=== PATIENT | male | born 1930 | race Caucasian/White ===

== ENCOUNTER 2018-10-05 14:22 | Inpatient (IN) ==
--- NOTE | 2018-10-05 15:42 | Diag Imaging Result Doc PS360 ---
EXAM: CHEST-PORTABLE 10/05/2018 HISTORY: stroke like symptoms TECHNIQUE: AP upright at 1535 COMMENT: There is no evidence of acute cardiac or pulmonary disease. There is what appears to be a small granuloma in the left costophrenic angle. There are sternotomy wires. Compared to 06/28/2018 there has been no significant change. IMPRESSION: No acute disease. Electronically signed by Wayne Reynoso 10/05/2018 3:40 PM
--- NOTE | 2018-10-05 15:47 | Diag Imaging Result Doc PS360 ---
EXAM: CT HEAD W/O CONTRAST - 10/05/2018 HISTORY: stroke like symptoms TECHNIQUE: CT head without contrast COMPARISON: 03/05/2015 FINDINGS: There are atrophic changes similar to the prior exam. There is an apparent arachnoid cyst at the left posterior fossa similar to the prior exam. There is a 0.7 cm infarct in the [place] to the right of midline which has developed since the prior exam, but has well demarcated appearance suggests old infarct. There are chronic ischemic changes elsewhere similar to the prior exam. There is no recent-appearing infarct identified, although acute infarcts may not be immediately visible. There are atherosclerotic calcifications noted at the base the brain. There is no evidence of intracranial hemorrhage, acute mass effect, or midline shift. IMPRESSION: Atrophic changes similar to prior. 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 New (since 03/05/2015) 0.7 cm infarct at right [place], the appearance of which suggests that it is otherwise old. Chronic ischemic changes elsewhere. No visible acute abnormality otherwise. No hemorrhage. This exam was performed using automated exposure control, adjustment of mA or kV according to patient size, and/or use of iterative reconstruction technique. Electronically signed by Cecilio Hamilton 10/05/2018 3:45 PM
[2018-10-05 16:10] LABS: BASO# 0.01 X1000 (0.0-0.2); BASO% 0.1 % (0.0-0.8); HEMATOCRIT 41.6 % (42.0-52.0); HEMOGLOBIN 13.9 g/dL (14.0-18.0); IMM GRAN# 0.06 X1000 (0.0-0.04); IMM GRAN% 0.3 % (0.0-0.5); LYMPH# 1.42 X1000 (1.2-3.4); MCH 29.8 PG (27-31); MCHC 33.4 g/dL (33-37); MCV 89.3 FL (81-99); MONO# 1.53 X1000 (0.11-0.59); MONO% 8.7 % (1.7-9.3); MPV 10.5 FL (7.4-10.4); NEUT# 14.64 X1000 (1.4-6.5); NEUT% 82.9 % (42.2-75.2); PLT 274 X1000 (130-400); RBC 4.66 XMIL (4.7-6.1); RDW 13.3 % (11.5-14.5); WBC 17.66 X1000 (4.8-10.8)
[2018-10-05 16:18] LABS: INR 0.98; PROTIME 13.7 Seconds (11.0-16.0)
[2018-10-05 16:19] LABS: PTT 27.5 Seconds (22.3-41.8)
--- NOTE | 2018-10-05 16:23 | PROVIDER DOCUMENTATION ---
This chart was entered by Lucia Bain Scribe, acting as scribe for Joshua Lovell MD. HPI-General Adult - General Chief Complaint: Altered Mental Status Stated Complaint: ams, hyperglycemic Time Seen by Provider: 10/05/18 15:05 Source: patient, family (daughter), EMS Allergies/Adverse Reactions: Patient Allergies Allergy/AdvReac Type Severity Reaction Status Date / Time No Known Allergies Allergy Verified 02/22/18 01:07 Home Medications: Home Medication List Medication Instructions Recorded Confirmed Last Taken Type Amlodipine Besylate 5 mg PO DAILY 02/22/18 02/22/18 02/21/18 History Atorvastatin Calcium 10 mg PO DAILY 02/22/18 02/22/18 02/21/18 History Carvedilol 25 mg PO BID 02/22/18 02/22/18 02/21/18 History Clopidogrel Bisulfate [Clopidogrel] 75 mg PO DAILY 02/22/18 02/22/18 02/21/18 History Insulin Glargine,Hum.rec.anlog 40 units SQ DAILY 02/22/18 02/22/18 02/21/18 History [Lantus Solostar] Montelukast Sodium 10 mg PO DAILY 02/22/18 02/22/18 02/21/18 History Pantoprazole Sodium 40 mg PO DAILY 02/22/18 02/22/18 02/21/18 History Terazosin HCl 2 mg PO DAILY 02/22/18 02/22/18 02/21/18 History Acetaminophen [Tylenol] 1,000 mg PO Q8H tablet 02/27/18 Unknown Rx Albuterol 2.5MG/Ipratrop 0.5MG 3 ml INH Q2H PRN PRN neb 02/27/18 Unknown Rx [Duoneb (A & A)] Bisacodyl [Dulcolax] 10 mg [place] QHS supp 02/27/18 Unknown Rx Chlorhexidine Gluconate [Peridex] 15 ml MT BID udc 02/27/18 Unknown Rx Docusate Sodium [Colace] 200 mg PO QHS capsule 02/27/18 Unknown Rx Enoxaparin [Lovenox] 40 mg SUBQ Q24H #14 syringe 02/27/18 Unknown Rx Ferrous Sulfate 325 mg PO DAILY tablet 02/27/18 Unknown Rx Lactulose 30 ml PO Q8H udc 02/27/18 Unknown Rx Magnesium Hydroxide [Milk of 30 ml PO DAILY PRN PRN udc 02/27/18 Unknown Rx Magnesia] Naloxegol Oxalate [Movantik] 25 mg PO ACB tablet 02/27/18 Unknown Rx Nitroglycerin Sl [Nitroglycerin] 0.4 mg SL Q5M PRN PRN tablet 02/27/18 Unknown Rx Oxycodone I.r. [Oxy Ir] 5 mg PO Q3H PRN PRN #40 tab 02/27/18 Unknown Rx Polyethylene Glycol 3350 [Miralax] 17 gm PO BID powder, packet 02/27/18 Unknown Rx - History of Present Illness -Gen Adult Nature of Presenting Problems: 88 yowm presents to the ed via ems with cc confusion and BGL low 300's daughter called ems due to giving pt his insulin but FSBG remains in 300 range. she sts he has had intermittent confusion and has worsened today. pt on exam sts he has had dizziness with no other complaints ems FSBG 241 Location of Pain/Injury: reports: none Pain Radiation: reports: no radiation Quality of Pain: reports: none Severity: reports: moderate Onset/Duration: reports: 24 hours ago Timing: reports: improving Context/Activities at Onset: reports: light activity Modifying Factors: improves with: nothing Associated Symptoms: reports: dizziness. denies: back/neck pain, chest pain, cough, fatigue, fever/chills, loss of appetite, malaise, nausea, shortness of breath, vomiting Similar Symptoms Previously?: Yes Recently seen or treated by another doctor?: No - Diabetes Related Context Context: reports: high blood sugar Review of Systems - Adult - REVIEW OF SYSTEMS - ADULT ROS:: limited per condition Constitutional: denies: chills, fever Eyes: denies: blurred vision, double vision Ears, Nose, Mouth & Throat: reports: no symptoms reported Cardiovascular: denies: chest pain, palpitations Respiratory: denies: cough, shortness of breath, wheezing Gastrointestinal: denies: abdominal pain, diarrhea, nausea, vomiting Genitourinary: reports: no symptoms reported Musculoskeletal: denies: back pain, neck pain Integumentary: reports: no symptoms reported Neurological: reports: see HPI, dizziness/vertigo, other (confusion). denies: headache/migraines, numbness, paresthesia, seizure, slurred speech, syncope, tremors Psychiatric: reports: no symptoms reported Endocrine: reports: no symptoms reported Hematologic/Lymphatic: reports: no symptoms reported Allergic/Immunologic: reports: no symptoms reported All Other Systems: Reviewed and Negative Past History - Adult - PAST MEDICAL HISTORY-ADULT Review of Records: reports: Old Records Reviewed, Nursing Assessment Review, Medications Reviewed, Social history reviewed & non-contributory. 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 Other Conditions: reports: denies history - PRIOR SURGERIES/PROCEDURES Surgical/Procedure History: reports: CABG, tonsillectomy - IMMUNIZATION STATUS Childhood Immunizations: See Nurse Assessment Flu Vaccine: See Nurse Assessment - FAMILY HISTORY Family History: reviewed, not pertinent - SOCIAL HISTORY Smoking: denies Substance Use: denies Living Situation: family Physical Exam-General - PHYSICAL EXAM-ADULT Initial Vital Signs Reviewed: Yes - CONSTITUTIONAL General Appearance: appears well, alert, no apparent distress, obese, other ( flat in speech) - EYES Eyes: PERRL/EOMI, pink conjunctivae - HEAD, EARS, NOSE, MOUTH & THROAT HENMT: moist mucous membranes, normal ENT inspection, other (left facial droop but from old CVA) - NECK Neck: non-tender, full range of motion, supple - RESPIRATORY Respiratory: chest non-tender, lungs clear, normal breath sounds - CARDIOVASCULAR Cardiovascular: normal peripheral pulses, regular rate, rhythm - CHEST (BREASTS) Chest/Breast: deferred - GASTROINTESTINAL (ABDOMEN) Abdominal Exam: normal bowel sounds, non tender, soft - GENITOURINARY Male Genitalia: deferred Rectal Exam: deferred Hemoccult Exam: deferred - LYMPHATIC Lymphatic: no adenopathy - MUSCULOSKELETAL Back Exam: normal inspection Extremity: normal capillary refill, swelling (BLE edema 2+) - SKIN Integumentary: normal color, normal turgor, warm/dry - PSYCHIATRIC Psych/Mental Status: normal mood/affect, normal thought content, normal thought process Progress - PLAN OF CARE/RESULTS Progress/Plan/Lab Results: Vital Signs - 8 hr 10/05/18 15:12 Pulse Rate 73 Respiratory Rate 18 Blood Pressure 126/58 O2 Sat by Pulse Oximetry 93 L Laboratory Results - last 24 hr 10/05/18 10/05/18 10/05/18 15:49 15:50 15:50 WBC 17.66 H RBC 4.66 L Hgb 13.9 L Hct 41.6 L MCV 89.3 MCH 29.8 MCHC 33.4 RDW Std Deviation 13.3 Plt Count 274 MPV 10.5 H Immature Gran % (Auto) 0.3 Neut % (Auto) 82.9 H Lymph % (Auto) 8.0 L [place] % (Auto) 8.7 Eos % (Auto) 0.0 Baso % (Auto) 0.1 Immature Gran # (Auto) 0.06 H Neut # (Auto) 14.64 H Lymph # (Auto) 1.42 [place] # (Auto) 1.53 H Eos # (Auto) 0.00 Baso # (Auto) 0.01 PT 13.7 INR 0.98 PTT (Actin FS) 27.5 POC Glucose 219 H Orders Category Date Time Status Cardiac Monitoring DIRECTED Care 10/05/18 15:11 Active Finger Stick Blood Sugar (ED) DIRECTED Care 10/05/18 15:11 Active Oxygen Therapy- ED Nursing DIRECTED Care 10/05/18 15:11 Active Saline Loc NOW Care 10/05/18 15:11 Active CHEST-PORTABLE [RAD] Stat Exams 10/05/18 15:[address] HEAD W/O CONTRAST [CT] Stat Exams 10/05/18 15:11 Completed ACETONE SERUM [CHEM] Stat Lab 10/05/18 15:50 Received CBC WITH ELECTRONIC DIFF [HEME] Stat Lab 10/05/18 15:50 Completed COMPREHENSIVE METABOLIC PANEL [CHEM] Stat Lab 10/05/18 15:50 Received PRO B-NATRIURETIC PEPTIDE Stat Lab 10/05/18 15:50 Received PROTIME WITH INR [COAG] Stat Lab 10/05/18 15:50 Completed PTT [COAG] Stat Lab 10/05/18 15:50 Completed TROPONIN T Stat Lab 10/05/18 15:50 Received URINALYSIS W/POSS RFLX CULT [URINALYSIS] Stat Lab 10/05/18 15:11 Uncollected EKG [EKG] Stat Ther 10/05/18 15:11 Ordered Result Diagrams: 10/05/18 15:50 10/05/18 15:50 - REASSESSMENT Reassessment #1 Time Reassessed: 16:22 Status: worsening (a little less responsive, will give rocephin for likely UTI. CT scan shows pontine infarct, likely old, but new since CT 2014) - EKG 1 Time of EKG reading by physician:: 16:21 EKG Read and Signed by:: Joshua Lovell EKG Interpretation (*Must complete 3 of following elements*): Abnormal Rate: 68 Rhythm: nsr with sinus arrhythmia [place]: normal QRS: RBB [place] Interval: normal ST Wave: normal - XRAY 1 XRAY: Bilateral XRAY Study: Chest Impression: See EMR Report (EXAM: CHEST-PORTABLE 10/05/2018 HISTORY: stroke like symptoms TECHNIQUE: AP upright at 1535 COMMENT: There is no evidence of acute cardiac or pulmonary disease. There is what appears to be a small granuloma in the left costophrenic angle. There are sternotomy wires. Compared to 06/28/2018 there has been no significant change. IMPRESSION: No acute disease. Electronically signed by Wayne Reynoso 10/05/2018 3:40 PM 1540 Interpreting Physician: Wayne Reynoso MD Dictated Date/Time: 10/05/18 1539 cc: Joshua Lovell MD; William Zamora MD) - CT/MRI 1 CT Study: Head Impression: See EMR Report (EXAM: CT HEAD W/O CONTRAST - 10/05/2018 HISTORY: stroke like symptoms TECHNIQUE: CT head without contrast COMPARISON: 2014 FINDINGS: There are atrophic changes similar to the prior exam. There is an apparent arachnoid cyst at the left posterior fossa similar to the prior exam. There is a 0.7 cm infarct in the [place] to the right of midline which has developed since the prior exam, but has well demarcated appearance suggests old infarct. There are chronic ischemic changes elsewhere similar to the prior exam. There is no recent-appearing infarct identified, although acute infarcts may not be immediately visible. There are atherosclerotic calcifications noted at the base the brain. There is no evidence of intracranial hemorrhage, acute mass effect, or midline shift. IMPRESSION: Atrophic changes similar to prior. 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 New (since 03/05/2015) 0.7 cm infarct at right lou[place], the appearance of which suggests that it is otherwise old. Chronic ischemic changes elsewhere. No visible acute abnormality otherwise. No hemorrhage. This exam was performed using automated exposure control, adjustment of mA or kV according to patient size, and/or use of iterative reconstruction technique. Electronically signed by Cecilio Hamilton 10/05/2018 3:45 PM 10/05/18 1545 Interpreting Physician: Cecilio Hamilton MD Dictated Date/Time: 10/05/18 1538 cc: Joshua Lovell MD; William Zamora MD) - CONSULTS/PCP/HOSPITALIST Notification #1 *Consult/PCP/Hospitalist*: dr zamora Time Discussed: 18:11 Consult Disposition: Admit Departure - Departure Date of Disposition Decision: 10/05/18 Time of Disposition Decision: 18:20 DIAGNOSIS: Bacteremia, Elevated LFTs Altered mental status, unspecified Qualifiers: Altered mental status type: somnolence Qualified Code(s): R40.0 - Somnolence UTI (urinary tract infection) Qualifiers: Urinary tract infection type: acute cystitis Hematuria presence: without hematuria Qualified Code(s): N30.00 - Acute cystitis without hematuria Disposition: ADMITTED INPATIENT 09 Certified Medical Emergency: Emergent Condition: Fair Referrals and Follow-Ups: William Zamora MD [Primary Care Provider] - - Critical Care Note This patient required my direct & personal management of CC.: No Attestation - Physician/ DARYN Attestation Patient care was provided by Advanced Practice Provider:: No The physician spent face to face time with patient:: Yes Advanced Practice Provider documentation review:: Supervising physician onsite and consulted in the evaluation and care of this patient. The physician did have a face to face encounter with the patient. This chart was documented by the indicated scribe, (Lucia Bain Scribe) and accurately reflects the services I performed and decisions made by me, Joshua Lovell MD, as attested by the provider's signature.
[2018-10-05] MEDS ORDERED: ROCEPHIN 1 GM in NS 50 ML IV ONE (16:24)
[2018-10-05 16:38] LABS: AGAP 14; ALB/GLOB RATIO 1.3; ALBUMIN 3.6 g/dL (3.5-5.0); ALKALINE PHOSPHATASE 215 U/L (32-122); BUN 11 mg/dL (8-22); CALCIUM 9.2 mg/dL (8.8-10.2); CHLORIDE 94 mmol/L (98-107); COSMO 277; ESTIMATED GFR > 60; GLUCOSE 209 mg/dL (70-104); GOT 532 U/L (10-34); GPT 447 U/L (10-44); POTASSIUM 3.3 mmol/L (3.5-5.1); SODIUM 136 mmol/L (136-145); TCO2 28 mmol/L (25-35); TOTAL BILIRUBIN 4.54 mg/dL (0.20-1.00); TOTAL PROTEIN 6.4 g/dL (6.3-8.3)
--- NOTE | 2018-10-05 16:40 | EKG Report ---
Test Performed on : 10/05/2018 4:21:49 PM Test Reason : Stroke like symptoms Blood Pressure : / mmHG Vent. Rate : 068 BPM Atrial Rate : 068 BPM P-R Int : 198 ms QRS Dur : 160 ms QT Int : 462 ms P-R-T Axes : 091 052 020 degrees QTc Int : 491 ms Normal sinus rhythm. with sinus arrhythmia. Right bundle branch block Abnormal ECG When compared with ECG of 28-JUN-2018 16:54, No significant change was found Unconfirmed Result
[2018-10-05 17:10] LABS: URINE SOURCE CLEAN CATCH
[2018-10-05 17:15] LABS: BILIRUBIN URINE SMALL (NEGATIVE); BLOOD URINE NEGATIVE (NEGATIVE); COLOR YELLOW; GLUCOSE URINE >1000 mg/dL (NEGATIVE); KETONE URINE TRACE mg/dL (NEGATIVE); LEUKOCYTES URINE NEGATIVE (NEGATIVE); NITRITE URINE NEGATIVE (NEGATIVE); PH URINE 6.5; PROTEIN URINE 30 mg/dL (NEGATIVE); SP GRAVITY URINE 1.014; TURBIDITY URINE CLEAR (CLEAR); UROBILINOGEN URINE 8 mg/dL (NORMAL)
[2018-10-05 17:16] LABS: UR EPITHELIAL CELLS >10 /HPF (<10); URINE BACTERIA NEGATIVE /HPF; URINE RBC <10 /HPF (<10); URINE WBC <10 /HPF (<10)
[2018-10-05] MEDS ORDERED: ZOSYN 3.375 GM in NS 50 ML IV ONE ×2 (17:51→18:25)
[2018-10-05] MEDS ORDERED: ZOFRAN IV PRN (18:23)
[2018-10-05] MEDS ORDERED: TYLENOL PO PRN (18:23)
[2018-10-05] MEDS ORDERED: NS 1,000 ML IV ONE (18:25)
--- NOTE | 2018-10-05 18:40 | Diag Imaging Result Doc PS360 ---
EXAM: US GB < RUQ (LIMITED) 10/05/2018 HISTORY: ruq pain TECHNIQUE: Right upper quadrant ultrasound COMMENT: The pancreas is unremarkable in appearance. The aorta and inferior vena cava are normal in appearance where there are visible. There are no definite hepatic abnormalities. There is antegrade flow in the portal vein. The gallbladder is somewhat distended and the wall is slightly thickened. There is no evidence of biliary dilatation the common bile duct measuring less than 5 mm in diameter. The right kidney is without evidence of hydronephrosis or mass. There is no sonographic Rahman sign. IMPRESSION: The possibility of chronic acalculous cholecystitis cannot be excluded. Otherwise no evidence of acute disease. Electronically signed by Wayne Reynoso 10/05/2018 6:37 PM
--- NOTE | 2018-10-05 19:05 | Diag Imaging Result Doc PS360 ---
EXAM: CT RENAL STONE SEARCH 10/05/2018 HISTORY: abd pain, sepsis, UTI TECHNIQUE: This exam was performed using automated exposure control, adjustment of mA or kV according to patient size, and/or use of iterative reconstruction technique. COMMENT: There are no previous studies available for comparison. There are some irregular and nodular opacities posteriorly in the posterior costophrenic sulcus of the right right lower lobe as well as linear opacities in the left lower lobe posteriorly. Some of this may be due to fibrosis however the possibility of atelectasis and on the right right side a mild degree of pneumonia cannot be excluded. There is no evidence of stones or hydronephrosis in the kidneys. There is are small stones layering dependently in the gallbladder and the gallbladder wall is thickened with some stranding in the fat. The possibility of acute cholecystitis cannot be excluded. There is dilatation the common bile duct to over 8 mm. There is an apparent 9 mm hyperdense nodule in the distal common bile duct probably representing a stone. There are scattered colonic diverticula. There is no evidence of acute diverticulitis. There has been previous appendectomy by history. There is stool in the rectosigmoid colon. The urinary bladder is grossly normal in appearance. There is some obscuration of the lower pelvis by beam hardening artifact from the left hip prosthesis. There is no evidence of acute bony abnormality. IMPRESSION: 1. Fibrotic appearing changes in the lung bases. 2. Cholelithiasis with possible acute cholecystitis. 3. Possible distal choledocholithiasis. Electronically signed by Wayne Reynoso 10/05/2018 7:02 PM
[2018-10-05] MEDS ORDERED: HUMALOG SUBQ ONE (19:49)
[2018-10-05] MEDS: NS + KCL 20 MEQ 1,000 ML IV SCH (21:12)
[2018-10-05] MEDS: ZOSYN 3.375 GM in NS 50 ML IV SCH (21:15)
[2018-10-05] MEDS: POTASSIUM CHLORIDE 20 MEQ/SWI 20 MEQ/100 ML IVPB IV SCH (21:23)
[2018-10-05] MEDS: DUONEB (A & A) INH SCH (22:00)
[2018-10-05] MEDS: PROTONIX IV SCH (22:10)
[2018-10-05] MEDS ORDERED: CALMOSEPTINE OINTMENT TOP PRN (23:59)
--- NOTE | 2018-10-06 00:19 | HISTORY AND PHYSICAL ---
HISTORY OF PRESENT ILLNESS: Mr. Lowe, an 88-year-old white gentleman, came for altered mental status and elevated blood sugar. The patient is vague and a poor historian. According to family member, lately, the patient's blood sugar was staying high. They were not able to bring it down. The patient also had confusion and some disorientation. According to the patient, the patient claims he was feeling dizzy and weak. Oral intake was poor. The patient had longstanding diabetes mellitus, poorly-controlled, partially due to noncompliance to diet. The patient denied any fever. He was complaining of chills. No nausea or vomiting. Complaining of abdominal discomfort, vague upper abdominal pain. No diarrhea, blood, or mucus in the stool. The patient does have constipation. The patient had dark-colored urine. At times, urinary hesitancy. No dysuria or hematuria. Complaining of generalized body pain and achiness. The patient does have arthritis involving hip joint, knee, at times low back pain. The patient had unquantified weight loss. No major headache. He did have generalized weakness. The patient does have a problem with recent memory. No further history available at this time. The patient claims he can walk with a walker. He did have some falls at home, but the patient cannot elaborate on those falls. ALLERGIES: No known drug allergy. CURRENT MEDICATIONS AT HOME: Tylenol nebulizer treatment, Norvasc, Lipitor, Dulcolax, Coreg, Plavix, insulin, milk of magnesia, Singulair, nitroglycerin, MiraLAX. I got this list from the older record. I do not have an updated list of his home medications. PAST MEDICAL HISTORY: Hypertension, hyperlipidemia, insulin-dependent diabetes mellitus, osteoarthritis, hip fracture, history of CVA, COPD, coronary artery disease, vitamin B12 deficiency, dementia. The patient had a CABG, tonsillectomy, hip surgery on the left hip. PERSONAL HISTORY: Single. Lives with a grandson. Nonsmoker. Denied alcohol or substance abuse. Needs assistance in activities of daily living. PHYSICAL EXAMINATION: GENERAL: Elderly white gentleman, in mild distress. VITAL SIGNS: Blood pressure 126/58, pulse 73, respirations 18. SKIN: Senile turgor. No rash or petechiae. Head atraumatic, normocephalic. [place] conjunctivae, icteric sclerae. Extraocular muscle movements normal. Fundus cannot be penetrated. Good oral hygiene. No tonsillopharyngeal congestion or exudate. Ears and nose benign. NECK: Supple. No JVD, thyromegaly, or lymphadenopathy. CHEST: Bibasilar crepitation. No rales. CARDIOVASCULAR: S1 and S2 heard. A 2/6 systolic murmur at the apex. ABDOMEN: Soft, globular. Bowel sounds present. Tenderness in epigastrium and right upper quadrant. The patient does have fullness in the right upper quadrant. EXTREMITIES: No cyanosis, clubbing. No acute DVT. ANIMAL CAREGIVER: Alert, awake. Answering questions fair. Able to move all 4 limbs. LABORATORY DATA: Ketones were negative. Urinalysis shows small bilirubin. Patient did have glycosuria. Otherwise, negative for UTI. Electrolytes: AST 532, ALT 448, alkaline phosphatase 215. ProBNP was 2193. Total bilirubin 4.54. Potassium 3.3. PT and PTT normal. CBC did reveal leukocytosis. CONSIDERATION: The patient presented with right upper quadrant pain and tenderness. CT scan did reveal gallstone, acute cholecystitis, and possible choledocholithiasis. I discussed the patient's presentation with Dr. Stapleton, the surgeon, and requesting to see the patient. We did a septic workup. Started patient on broad-spectrum antibiotics. Other problems include diabetes mellitus, hypertension, hypokalemia, coronary artery disease, COPD, osteoarthritis. PLAN: Admit patient. IV antibiotics. Close observation. Telemetry monitoring. Oxygen. Overall plan discussed at length with the patient, and he is in agreement. Fall precaution. cc: William Escobar MD
[2018-10-06] MEDS: ZOSYN 3.375 GM in NS 50 ML IV SCH ×4 (01:59→21:21)
[2018-10-06] MEDS: POTASSIUM CHLORIDE 20 MEQ/SWI 20 MEQ/100 ML IVPB IV SCH (02:51)
[2018-10-06] MEDS: DUONEB (A & A) INH SCH ×4 (03:10→21:40)
[2018-10-06] MEDS: HUMALOG SUBQ SCH ×4 (06:58→21:22)
[2018-10-06] MEDS ORDERED: HUMALOG SUBQ SCH (07:00)
--- NOTE | 2018-10-06 07:00 | PROGRESS NOTE ---
DATE: 10/06/2018 SUBJECTIVELY: Mr. Lowe is doing fair. The patient claims to have some pain in the upper abdomen, occasional nausea and vomiting. The patient is a very vague and poor historian, some chills. Had low-grade fever. The patient did have some confusion at home. No dysuria or hematuria. Denied diarrhea, blood, or mucus in the stool. No typical chest pain or palpitations, mild cough. No expectoration. The patient is vague and poor historian. The patient admitted with abdominal pain, uncontrolled diabetes, and some confusion. His workup did reveal gallstone cholecystitis, abnormal LFTS. OBJECTIVE: Vital signs: Blood pressure 142/67, pulse 73, respirations 20, temperature 97.6 degrees. Patient remains afebrile. Neck: Supple. No JVD. Lungs: Bibasilar crepitations. Heart: S1 and S2 heard. Abdomen: Soft, globular. Mild fullness right upper quadrant with tenderness. No guarding or rigidity. Extremities: No cyanosis, clubbing. No acute DVT. SNOW PLOW TRACTOR OPERATOR: Alert, awake, answering questions fair. Able to move all 4 limbs. LABORATORY DATA: Lab data did reveal leukocytosis with left shift. This was done yesterday. AST 532. ALT was 447. Bilirubin was 4.54. Patient had abdominal ultrasound done, which revealed possibility of chronic acalculous cholecystitis. The patient also had CT scan of the brain done because of altered mental status, which revealed atrophic changes, arachnoid cyst at left posterior fossa. No evidence of intracerebral bleed, acute mass effect, or midline shift. The patient had a CT scan of the abdomen and pelvis done, which revealed cholelithiasis with possible acute cholecystitis, possible distal choledocholithiasis. ASSESSMENT: 1. Patient's problem includes possible acute cholecystitis. 2. Though, clinically, the patient did not have significant tenderness in the right upper quadrant, the patient does have leukocytosis, jaundice, uncontrolled diabetes mellitus, hypertension, history suggestive of COPD, coronary artery disease, BPH. PLAN: Continue IV antibiotics, supportive care. Surgeon is going to evaluate the patient today. Overall plan discussed with the patient, and he is in agreement. cc: William Escobar MD
[2018-10-06 07:25] LABS: BASO# 0.02 X1000 (0.0-0.2); BASO% 0.2 % (0.0-0.8); EOS% 0.9 % (0.0-10.0); HEMATOCRIT 40.7 % (42.0-52.0); HEMOGLOBIN 13.3 g/dL (14.0-18.0); IMM GRAN# 0.02 X1000 (0.0-0.04); IMM GRAN% 0.2 % (0.0-0.5); LYMPH# 1.22 X1000 (1.2-3.4); LYMPH% 10.4 % (20.5-51.1); MCH 29.6 PG (27-31); MCHC 32.7 g/dL (33-37); MCV 90.4 FL (81-99); MONO# 0.97 X1000 (0.11-0.59); MONO% 8.3 % (1.7-9.3); MPV 10.5 FL (7.4-10.4); NEUT# 9.38 X1000 (1.4-6.5); PLT 243 X1000 (130-400); RDW 13.5 % (11.5-14.5); WBC 11.71 X1000 (4.8-10.8)
[2018-10-06 07:48] LABS: AGAP 12; ALB/GLOB RATIO 1.1; ALBUMIN 3.3 g/dL (3.5-5.0); ALKALINE PHOSPHATASE 186 U/L (32-122); BUN 13 mg/dL (8-22); CHLORIDE 96 mmol/L (98-107); COSMO 280; ESTIMATED GFR > 60; GLUCOSE 176 mg/dL (70-104); GOT 264 U/L (10-34); GPT 313 U/L (10-44); POTASSIUM 3.5 mmol/L (3.5-5.1); SODIUM 138 mmol/L (136-145); TCO2 30 mmol/L (25-35); TOTAL BILIRUBIN 5.46 mg/dL (0.20-1.00); TOTAL PROTEIN 6.4 g/dL (6.3-8.3)
[2018-10-06 07:58] LABS: HEMOGLOBIN A1C 7.9 % (4.8-6.0)
[2018-10-06 08:06] LABS: FREE T4 1.12 ng/dL (0.93-1.70); TSH 1.18 uIUmL (0.27-4.20)
--- NOTE | 2018-10-06 08:23 | GENERAL SURGERY CONSULTATION ---
DATE: 10/06/2018 REQUESTING PHYSICIAN: Dr. Escobar. REASON FOR CONSULTATION: Acute cholecystitis. HISTORY OF PRESENT ILLNESS: This is an 88-year-old male, who is a poor historian, but reportedly presented with dizziness, weakness, confusion, and poor oral intake over the last few weeks. He also reported some upper abdominal pain, more so on the left side to me. He has had nausea but no vomiting. No fever. His urine has turned dark. No exacerbating or relieving factors have been noticed. PAST MEDICAL HISTORY: Hypertension, hyperlipidemia, insulin-dependent diabetes, stroke, COPD, coronary artery disease, vitamin B12 deficiency, dementia. PAST SURGICAL HISTORY: CABG, tonsillectomy, left hip surgery. HOME MEDICATIONS: Norvasc, Lipitor, Dulcolax, Coreg, Plavix, insulin, milk of magnesia, Singulair, nitroglycerin, and MiraLAX. ALLERGIES: No known drug allergies. SOCIAL HISTORY: Negative for tobacco, alcohol, or illicit drug use. He lives with a grandson. REVIEW OF SYSTEMS: Ten systems reviewed and negative except as noted above. FAMILY HISTORY: Reviewed and noncontributory. OBJECTIVE: Vital signs: Temperature 97.6 degrees, pulse 73, blood pressure 142/67, O2 saturation 99%. General: Elderly male, who is well-developed, well-nourished. He looks his stated age. HEENT: Normocephalic, atraumatic. Extraocular muscles intact. Pupils equal, round, reactive to light. Sclerae anicteric. Moist mucous membranes. Neck: Supple. No thyromegaly. CV: Regular rate and rhythm. Respiratory: Bilateral equal breath sounds. No work of breathing. GI: Soft and nondistended. No organomegaly or mass. Mild tenderness across his upper abdomen. No rebound or guarding. Extremities: No clubbing, cyanosis, or edema. Skin: Warm, dry, and no rash. Musculoskeletal: Moves all extremities equally and well. LABORATORY: White cell count 17,000, hemoglobin 13.9, hematocrit 41, platelet count 274,000. INR 0.98. Electrolytes reviewed and notable for total bilirubin of 4.5, AST 532, ALT 447, alkaline phosphatase 215. Urinalysis reviewed and unremarkable. IMAGING: Abdominal ultrasound shows a distended gallbladder with a thickened wall. Abdominal and pelvis CT scan shows gallstones and a thickened gallbladder wall with stranding around it. There also appears to be a stone in the common bile duct. ASSESSMENT AND PLAN: An 88-year-old male with acute cholecystitis, probable choledocholithiasis. We are planning laparoscopic cholecystectomy with operative cholangiogram today. I discussed the risks and benefits with him including bleeding, infection, injury to surrounding organs such as the intestines or bile duct, the possible need for further procedures such as an endoscopic retrograde cholangiopancreatography and other imponderables. He understands and agrees to proceed. cc: MD William Lowry MD
[2018-10-06] MEDS ORDERED: SODIUM CHLORIDE 0.9% ONE (11:33)
[2018-10-06] MEDS ORDERED: LR 1,000 ML ONE (11:33)
[2018-10-06] MEDS ORDERED: SENSORCAINE 0.5%-EPI 1:200,000 ONE (11:33)
[2018-10-06] MEDS ORDERED: ZOFRAN ONE (12:27)
[2018-10-06] MEDS ORDERED: STERILE WATER INJ. ONE (12:27)
[2018-10-06] MEDS ORDERED: NORCURON ONE (12:27)
[2018-10-06] MEDS ORDERED: QUELICIN (DOSE) ONE (12:27)
[2018-10-06] MEDS ORDERED: DIPRIVAN 1% ONE (12:41)
[2018-10-06] MEDS ORDERED: ROBINUL ONE (12:42)
--- NOTE | 2018-10-06 12:48 | Diag Imaging Result Doc PS360 ---
OPERATIVE CHOLANGIOGRAM - 10/06/2018 INDICATION: GALLBLADDER DX TECHNIQUE: The exam was performed by the patient's surgeon. One image was obtained. Total fluoroscopy time was 18 seconds. COMPARISON: None FINDINGS: Contrast was infused into the cystic duct. There is diffuse dilation of the common bile duct. There is no passage of contrast into the duodenum. There appears to be a round filling defect in the distal most common bile duct consistent with an obstructing stone. IMPRESSION: Obstructing stone in the distal most common bile duct. Electronically signed by Torsten Camilo 10/06/2018 12:45 PM
[2018-10-06] MEDS: DILAUDID ONE ×4 (13:08→13:35)
[2018-10-06] MEDS: NS + KCL 20 MEQ 1,000 ML IV SCH (14:30)
[2018-10-06] MEDS: BUPRENEX IV PRN (15:44)
--- NOTE | 2018-10-06 16:41 | GASTROENTEROLOGY CONSULTATION ---
DATE: 10/06/2018 REASON FOR CONSULT: Choledocholithiasis HPI: Mr. Lowe is a 88 year old woman with HTN, HLD, IDDM2, h/o CVA, COPD, CAD s/ p CABG, and dementia who presented with several days of severe RUQ pain radiating to epigastric area, nausea, and jaundice. Workup was revealing for leukocytosis, mixed pattern LFT elevations, and US showing acute cholecystitis and choledocholithiasis. He underwent laparoscopic cholecystectomy today and IOC was revealing for CBD stones. Patient reports some post-surgical pain. PAST MEDICAL HISTORY: Hypertension, hyperlipidemia, insulin-dependent diabetes , stroke, COPD, coronary artery disease, vitamin B12 deficiency, dementia. PAST SURGICAL HISTORY: CABG, tonsillectomy, left hip surgery. HOME MEDICATIONS: Norvasc, Lipitor, Dulcolax, Coreg, Plavix, insulin, MoM, Singulair, nitroglycerin, and MiraLAX. ALLERGIES: No known drug allergies. SOCIAL HISTORY: Negative for tobacco, alcohol, or illicit drug use. He lives with a grandson. REVIEW OF SYSTEMS: Ten systems reviewed and negative except as noted above. FAMILY HISTORY: No FHx of GI malignancies PHYSICAL EXAM: VS: T 100.8 HR 92 RR 16 BP 151/70 96% 2LNC GEN: awake, alert, oriented x 2 (not date), NAD HEENT: icteric sclera, MMM NECK: No JVD, NAD CARDIAC: RRR, no murmurs PULM: CTAB ABD: incisions c/d/i, ND, mild TTP throughout; no peritonitis EXT: no cce NEURO: nonfocal LABORATORY: WBC 17 Hgb 13.9 Plts 274K Tbili 4.5 AST 532 [id number] ALP 215 UA neg White cell count 17,000, hemoglobin 13.9, hematocrit 41, platelet count 274, 000. INR 0.98. Electrolytes reviewed and notable for total bilirubin of 4.5, AST 532, ALT 447, alkaline phosphatase 215. Urinalysis reviewed and unremarkable. ASSESSMENT AND PLAN: Mr. Lowe is a 88 year old woman with HTN, HLD, IDDM2, h/o CVA, COPD, CAD s/ p CABG, and dementia who presented with acute cholecystitis and choledocholithiasis. No evidence of cholangitis, cirrhosis, or pancreatitis #Choledocholithiasis - recommend empiric zyson for 8 hours a day - continue clear liquid diet - will determine timing of ERCP over the weekend #HTN: controlled #DM2: on SSI Will follow with you. Please call with questions or [facility] cc: William Escobar MD MTDD
--- NOTE | 2018-10-06 19:39 | OPERATIVE NOTE ---
PROCEDURE DATE: 10/06/2018 PREOPERATIVE DIAGNOSIS: Acute cholecystitis. POSTOPERATIVE DIAGNOSIS: 1. Acute cholecystitis. 2. Common bile duct obstruction. SURGEON: Parish Stapleton MD. ANESTHESIA: General. PROCEDURE: Laparoscopic cholecystectomy with operative cholangiogram. ESTIMATED BLOOD LOSS: 20 mL. COMPLICATIONS: None apparent. SPECIMENS: Gallbladder. FINDINGS: The gallbladder was acutely inflamed. The common bile duct was mildly dilated and obstructed distally with what appeared to be a stone. TECHNIQUE: The patient was brought to the operating room and placed supine on the table. General anesthesia was induced. He was prepped and draped in usual sterile fashion. 0.25% Marcaine with epinephrine was used to anesthetize our incisions. An 11 mm incision was made above the umbilicus. The fascia was exposed and incised sharply. Entry into the peritoneal cavity was obtained under direct vision with the OptiGentronix device. Pneumoperitoneum was established. The camera was inserted. There was no evidence of injury to underlying structures. He was placed in reverse Trendelenburg and left rotation. Three 5 mm incision and ports were placed across the epigastrium right upper quadrant per usual routine under direct vision. There were omental adhesions to the right edge of the liver that I took down with scissors exposing the gallbladder. The gallbladder was then grasped by the costumer assistant with an Allis clamp and lifted up superiorly. Further adhesions of the omental fatty tissue to the gallbladder and liver were taken down with scissors and blunt dissection. The gallbladder was quite distended. I went ahead and punctured it with the needle and suctioned out bile for better grasping and retraction. The triangle of Calot was then dissected out with the [place] forceps and a hook cautery until the critical view was obtained. The gallbladder liver junction was seen. There were only 2 structures entering the gallbladder, the cystic duct and cystic artery. The artery was clipped proximally and distally and incised between with scissors. A clip was placed on the distal cystic duct. A ductotomy was made proximal to this with scissors. A 14-gauge Angiocath was passed through the right upper quadrant. The Taut cholangiogram catheter was passed through this into the cystic duct and held in place with a clip. The cholangiogram was performed with findings as noted above. The clip, catheter and Angiocath were removed. Four clips were placed on the cystic duct and divided distal to this with scissors. The gallbladder was removed from liver bed using hook cautery obtaining hemostasis along the way. After it was removed I irrigated with saline. There was minimal bloody ooze from liver bed which I controlled with cautery. When I was satisfied with hemostasis I suctioned out the old blood and bile. I then placed the gallbladder in an EndoCatch bag. The gallbladder and bag were brought out through the umbilical port site. The ports were removed. The abdomen was desufflated. The umbilical fascia was closed with a running 0 Vicryl. The skin was closed with a running 4-0 subcuticular Monocryl and Steri-Strips. There were no apparent complications. He was awakened in stable condition and transferred to recovery room. cc: MD William Lowry MD
[2018-10-06] MEDS: PROTONIX IV SCH (21:22)
[2018-10-07] MEDS: ZOSYN 3.375 GM in NS 50 ML IV SCH ×4 (02:44→22:17)
[2018-10-07] MEDS: DUONEB (A & A) INH SCH ×4 (03:35→21:35)
[2018-10-07] MEDS: NS + KCL 20 MEQ 1,000 ML IV SCH ×2 (05:25→15:02)
[2018-10-07] MEDS: HUMALOG SUBQ SCH ×4 (06:15→22:18)
[2018-10-07 07:41] LABS: BASO# 0.02 X1000 (0.0-0.2); BASO% 0.2 % (0.0-0.8); EOS# 0.06 X1000 (0.0-0.7); EOS% 0.6 % (0.0-10.0); HEMATOCRIT 38.7 % (42.0-52.0); HEMOGLOBIN 12.3 g/dL (14.0-18.0); IMM GRAN# 0.02 X1000 (0.0-0.04); IMM GRAN% 0.2 % (0.0-0.5); LYMPH# 1.43 X1000 (1.2-3.4); MCH 29.6 PG (27-31); MCHC 31.8 g/dL (33-37); MONO% 10.8 % (1.7-9.3); MPV 10.6 FL (7.4-10.4); NEUT# 7.56 X1000 (1.4-6.5); NEUT% 74.2 % (42.2-75.2); PLT 229 X1000 (130-400); RBC 4.16 XMIL (4.7-6.1); WBC 10.19 X1000 (4.8-10.8)
[2018-10-07 08:14] LABS: AGAP 13; ALB/GLOB RATIO 0.9; ALBUMIN 2.8 g/dL (3.5-5.0); ALKALINE PHOSPHATASE 180 U/L (32-122); BUN 13 mg/dL (8-22); CALCIUM 8.8 mg/dL (8.8-10.2); CHLORIDE 100 mmol/L (98-107); COSMO 285; CREATININE 0.9 mg/dL (0.7-1.2); ESTIMATED GFR > 60; GLUCOSE 162 mg/dL (70-104); GOT 120 U/L (10-34); GPT 197 U/L (10-44); POTASSIUM 3.6 mmol/L (3.5-5.1); SODIUM 141 mmol/L (136-145); TCO2 28 mmol/L (25-35); TOTAL BILIRUBIN 4.29 mg/dL (0.20-1.00); TOTAL PROTEIN 5.8 g/dL (6.3-8.3)
--- NOTE | 2018-10-07 11:17 | PROGRESS NOTE ---
DATE: 10/07/2018 SUBJECTIVE: Mr. Lowe is feeling better. He denied any high-grade fever or chills. Still has abdominal soreness. No typical chest pain or palpitations. Complaining of hypoxemia, but O2 saturation was satisfactory. The patient underwent laparoscopic cholecystectomy with operative cholangiogram. OBJECTIVE: Vital signs: Noted blood pressure 132/66, pulse 77, respirations 15, temperature 98.5 degrees. Skin: Senile turgor. Neck: Supple. No JVD. Lungs: Bibasilar crepitations. Heart: S1 and S2 heard. Abdomen: Soft, globular. Bowel sounds present. Mild diffuse tenderness. Extremities: No cyanosis, clubbing. No acute DVT. BRIM RAISER: Alert, awake able to move all 4 limbs. LABORATORY/X-RAY DATA: The patient's lab data done today: WBC count 10.19, hemoglobin 12.3, hematocrit 38.7, platelet count 229. Electrolytes: Potassium 3.6, sodium 141, blood sugar 162, total bilirubin 4.29, direct bilirubin 3.5, ALT 197, AST was 120, alkaline phosphatase 180. Patient still had elevated LFT with high direct bilirubin. Operative note reviewed. ASSESSMENT: Patient's problems include acute cholecystitis. Cholangiogram did reveal a gallstone in distal common bile duct. Gastroenterology consultation done. They are planning to do endoscopic retrograde cholangiopancreatography and possible stone extraction today. His other problems include diabetes mellitus, hypertension, coronary artery disease. Blood culture so far no growth. PLAN: Overall plan discussed with the patient and he is in agreement. cc: William Escobar MD
--- NOTE | 2018-10-07 12:27 | PROGRESS NOTE ---
DATE: 10/07/2018 SUBJECTIVE: Mr. Miki Lowe is an 88-year-old white male, who underwent a laparoscopic cholecystectomy with intraoperative cholangiogram yesterday per Dr. Stapleton. It was noted by cholangiogram that he had an obstructing distal common bile duct stone, and Gastroenterology has been consulted for ERCP. This morning the patient is awake and cooperative. His trocar sites are intact and his abdomen soft. His liver function tests have decreased slightly since yesterday. Electrolytes are within normal limits. His white blood cell count is normal with hematocrit of 38.7%. We feel he is doing well from his laparoscopic cholecystectomy and awaiting plan for possible ERCP per GI Medicine. He is on a clear liquid diet. cc: MD William Alicea MD
[2018-10-07] MEDS: PROTONIX IV SCH (22:17)
[2018-10-08] MEDS: ZOSYN 3.375 GM in NS 50 ML IV SCH ×4 (01:46→20:13)
[2018-10-08] MEDS: DUONEB (A & A) INH SCH ×4 (03:37→21:48)
[2018-10-08] MEDS: NS + KCL 20 MEQ 1,000 ML IV SCH ×3 (05:05→13:39)
--- NOTE | 2018-10-08 05:09 | GASTROENTEROLOGY PROGRESS NOTE ---
DATE: 10/07/2018 SUBJECTIVE: The patient is resting in bed. He complains of discomfort in the right upper quadrant. He was able to eat his breakfast this morning. He denies any fevers, rigors, or chills. PHYSICAL EXAMINATION: Vital Signs: Temperature 98.5 degrees, pulse rate of 77, respiratory rate of 14, blood pressure 132/66, saturating 98% on 2 L nasal cannula. Body weight of 222 pounds. BMI 30.1 kg/m2. General Appearance: Moderately built, moderately nourished, lying in bed, in no acute distress. HEENT: Pallor. Mild icterus. Neck: Supple. Abdomen: Discomfort in the right upper quadrant. No rebound. No guarding. Extremities: No cyanosis, clubbing. Neurologic: He is awake, alert, oriented x3. LABS: Hemoglobin and hematocrit are 12.2 and 38.7, white count 10.19, platelet count of 229,000. Sodium 141, potassium 3.6, chloride 100, bicarb 20, anion gap 13, BUN of 13, creatinine 0.9, glucose of 162, calcium is 8.8. Total bilirubin is 4.29, direct of 3.5, AST 120, ALT 197, alkaline phosphatase 180, total protein 5.8, albumin of 2.8. Blood culture x2 negative at 48 hours. IMPRESSION AND PLAN: 1. Choledocholithiasis. The patient's liver enzymes are trending down. He is eating well. We will continue on intravenous antibiotics, intravenous fluids, intravenous pain control. We will discuss with Dr. Barbour about the timing of endoscopic retrograde cholangiopancreatography. 2. Gastrointestinal prophylaxis with proton pump inhibitors. 3. Bowel regimen. We will start him on MiraLAX once daily. 4. Diabetes, on sliding scale insulin. 5. Abdominal pain. He is on [place] 7.5 every 4 hours as needed and Tylenol. 6. The above plan was discussed in detail with the patient and all questions were answered. Please call us with any further questions. cc: MD William Greene MD
[2018-10-08] MEDS: HUMALOG SUBQ SCH ×4 (06:32→20:14)
[2018-10-08 07:59] LABS: AGAP 10; ALB/GLOB RATIO 1.1; ALBUMIN 2.8 g/dL (3.5-5.0); ALKALINE PHOSPHATASE 203 U/L (32-122); BUN 8 mg/dL (8-22); CALCIUM 7.8 mg/dL (8.8-10.2); CHLORIDE 101 mmol/L (98-107); COSMO 275; CREATININE 0.8 mg/dL (0.7-1.2); ESTIMATED GFR > 60; GLUCOSE 183 mg/dL (70-104); GOT 80 U/L (10-34); GPT 138 U/L (10-44); POTASSIUM 3.5 mmol/L (3.5-5.1); SODIUM 136 mmol/L (136-145); TCO2 25 mmol/L (25-35); TOTAL BILIRUBIN 5.85 mg/dL (0.20-1.00); TOTAL PROTEIN 5.3 g/dL (6.3-8.3)
[2018-10-08] MEDS: MIRALAX PO SCH (08:37)
[2018-10-08 09:17] LABS: BASO# 0.01 X1000 (0.0-0.2); BASO% 0.1 % (0.0-0.8); EOS# 0.09 X1000 (0.0-0.7); EOS% 1.1 % (0.0-10.0); HEMATOCRIT 36.4 % (42.0-52.0); HEMOGLOBIN 11.7 g/dL (14.0-18.0); IMM GRAN# 0.02 X1000 (0.0-0.04); IMM GRAN% 0.2 % (0.0-0.5); LYMPH# 1.02 X1000 (1.2-3.4); LYMPH% 12.5 % (20.5-51.1); MCH 29.9 PG (27-31); MCHC 32.1 g/dL (33-37); MCV 93.1 FL (81-99); MONO% 9.8 % (1.7-9.3); MPV 10.6 FL (7.4-10.4); NEUT# 6.24 X1000 (1.4-6.5); NEUT% 76.3 % (42.2-75.2); PLT 200 X1000 (130-400); RBC 3.91 XMIL (4.7-6.1); RDW 13.9 % (11.5-14.5); WBC 8.18 X1000 (4.8-10.8)
--- NOTE | 2018-10-08 10:54 | PROGRESS NOTE ---
DATE: 10/08/2018 SUBJECTIVE: Mr. Lowe is status post laparoscopic cholecystectomy with intraoperative cholangiogram. His trocar incisions are healing well. His abdomen is mostly soft. His liver function tests remain elevated, and it is felt that he has a distal common bile duct which is obstructing. GI has been consulted. We are waiting their plan. He remains on clear liquids. cc: MD William Alicea MD
--- NOTE | 2018-10-08 12:21 | PROGRESS NOTE ---
DATE: 10/08/2018 VITAL SIGNS: Temperature 98, heart rate 88, respirations 18, blood pressure 150/59, O2 saturation on 2 liters nasal oxygen 98%. The patient continues to complain of some right upper quadrant soreness. He is able to tolerate p.o. liquids with no nausea or vomiting. He continues to have the common duct stone and abnormal liver functions. LABORATORY: This morning reveals increase in bilirubin to 5.8. AST is down at 80 compared to 120 yesterday. ALT is 138 compared to 197 yesterday. Alkaline phosphatase is 203, up from 180 yesterday. Sodium was 136, potassium 3.5, BUN 8, creatinine 0.8, glucose 183, hemoglobin 11.7, hematocrit 36.4, white blood count 8200 with 76% neutrophils. OBJECTIVE: Chest: Clear. Abdomen: Soft with mild right upper quadrant tenderness. PLAN: ERCP per GI. cc: MD William Floyd MD
--- NOTE | 2018-10-08 17:42 | GASTROENTEROLOGY PROGRESS NOTE ---
DATE: 10/08/2018 SUBJECTIVE: He is resting in bed. The patient is feeling the same. He complains of discomfort in the right upper quadrant. Denies any fevers, rigors, chills. Denies any nausea or vomiting. OBJECTIVE: Vital signs: Temperature of 98, pulse rate of 84, respiratory rate of 14, blood pressure of 152/59, saturating 94% 2 L nasal cannula. General Appearance: Moderately built, well nourished, lying in bed, in no acute distress. HEENT: Mild pallor. Icteric sclerae. Neck: Supple. Abdomen: Discomfort in the right upper quadrant. No rebound. No guarding. Extremities: No cyanosis, clubbing. Neurologic: He is alert, awake, oriented x3. DIAGNOSTIC STUDIES: Hemoglobin 11.7, hematocrit 36.4, white count of 8.1, and platelet count of 200,000. Sodium 134, potassium 3.5, chloride 101, bicarbonate 24, anion gap 10, BUN of 8, creatinine 0.8, glucose of 183, calcium 7.8. Bilirubin is 5.85, AST 80, ALT 138, alkaline phosphatase 203, total protein 5.3, albumin of 2.8. Blood culture x2 negative at 48 hours. IMPRESSION AND PLAN: 1. Choledocholithiasis. The patient is scheduled for ERCP tomorrow Dr. Barbour, he will be made n.p.o. past midnight. The risks, benefits, indications, and alternatives were discussed with the patient, and all questions answered. 2. Elevated liver enzymes. Likely secondary to above. 3. Status post cholecystectomy. This is postoperative day 2. Dr. Bain is following. 4. Gastrointestinal (GI) prophylaxis. PPIs. 5. Mild anemia. Continue to follow. 6. Constipation. Continue MiraLAX once daily. 7. Diabetes. On sliding-scale Humalog. 8. Pain control with [place] 7.5 every 4 hours. 9. He is on IV Zosyn. We will continue for now. The above plan was discussed with the patient, and all questions answered. Please call us with any questions. cc: MD William Greene MD
[2018-10-08] MEDS: PROTONIX IV SCH (20:13)
[2018-10-09] MEDS: ZOSYN 3.375 GM in NS 50 ML IV SCH ×4 (01:32→21:34)
[2018-10-09] MEDS: DUONEB (A & A) INH SCH ×4 (03:27→21:10)
[2018-10-09] MEDS: BUPRENEX IV PRN (03:32)
[2018-10-09] MEDS: NS + KCL 20 MEQ 1,000 ML IV SCH ×2 (03:33→21:38)
[2018-10-09] MEDS: HUMALOG SUBQ SCH ×4 (06:47→21:49)
--- NOTE | 2018-10-09 07:02 | PROGRESS NOTE ---
DATE: 10/09/2018 SUBJECTIVE: Mr. Lowe is doing fair. He was complaining of pain in the right knee. No swelling or redness. No nausea or vomiting. Patient scheduled to have ERCP. Patient was reluctant. I explained to him the benefit and importance of the test and procedure. He seems to be in agreement. His urine color is very dark. No atypical chest pain or palpitation. OBJECTIVE: VITAL SIGNS: Noted. Patient does have elevated blood pressure. NECK: Supple. No JVD. LUNGS: Bibasilar crepitation. HEART: S1, S2 heard. ABDOMEN: Soft. Tenderness upper abdomen. EXTREMITIES: No cyanosis or clubbing. No acute synovitis of the knee. SIZE WORKER: Alert, awake, able to move all four limbs. LAB DATA: Ordered for today is pending. ASSESSMENT: 1. Obstructive jaundice due to choledocholithiasis. 2. Right knee pain. Could be due to pseudogout. 3. Tkw-xridtdz-jbxgcfrrf diabetes mellitus. 4. Hypertension. 5. Chronic obstructive pulmonary disease. 6. Cholecystitis status post cholecystectomy. 7. History of coronary artery disease. PLAN: We will continue current treatment. Close observation. I did discuss with the patient about short-term rehab on Tuesday. He seems to be reluctant but agreed. And I am going to do a Flavoring [employer]terer consult to look for placement. I am going to follow today's labs. Continue the rest of the treatment. cc: William Escobar MD
[2018-10-09 07:28] LABS: BASO# 0.02 X1000 (0.0-0.2); BASO% 0.2 % (0.0-0.8); EOS# 0.19 X1000 (0.0-0.7); HEMATOCRIT 39.3 % (42.0-52.0); HEMOGLOBIN 12.7 g/dL (14.0-18.0); IMM GRAN# 0.03 X1000 (0.0-0.04); IMM GRAN% 0.3 % (0.0-0.5); LYMPH# 1.57 X1000 (1.2-3.4); LYMPH% 16.9 % (20.5-51.1); MCH 29.5 PG (27-31); MCHC 32.3 g/dL (33-37); MCV 91.4 FL (81-99); MONO# 0.84 X1000 (0.11-0.59); MPV 10.8 FL (7.4-10.4); NEUT# 6.65 X1000 (1.4-6.5); NEUT% 71.6 % (42.2-75.2); PLT 256 X1000 (130-400)
[2018-10-09 07:46] LABS: AGAP 11; ALB/GLOB RATIO 0.9; ALBUMIN 2.8 g/dL (3.5-5.0); ALKALINE PHOSPHATASE 196 U/L (32-122); BUN 7 mg/dL (8-22); CALCIUM 8.6 mg/dL (8.8-10.2); CHLORIDE 101 mmol/L (98-107); COSMO 280; CREATININE 0.8 mg/dL (0.7-1.2); ESTIMATED GFR > 60; GLUCOSE 151 mg/dL (70-104); GOT 51 U/L (10-34); GPT 97 U/L (10-44); MAGNESIUM 1.9 mg/dL (1.5-2.7); POTASSIUM 3.5 mmol/L (3.5-5.1); SODIUM 140 mmol/L (136-145); TCO2 28 mmol/L (25-35); TOTAL BILIRUBIN 3.77 mg/dL (0.20-1.00); TOTAL PROTEIN 5.9 g/dL (6.3-8.3)
[2018-10-09] MEDS: MIRALAX PO SCH (10:47)
--- NOTE | 2018-10-09 12:01 | GENERAL SURGERY PROGRESS NOTE ---
DATE: 10/09/2018 SUBJECTIVE: The patient denies abdominal pain, nausea, or vomiting. OBJECTIVE: Vital Signs: He is afebrile. Vital signs are stable. General: He is awake and alert, oriented x3. No acute distress. Cardiovascular: Regular rate and rhythm. Gastrointestinal: Soft, nontender, nondistended. Skin: Incision is clean, dry, and intact. LABORATORY DATA: White blood cell count 9.3, hemoglobin 12.7. Electrolytes reviewed, unremarkable. AST now 51, ALT 97, alkaline phosphatase 196, total bilirubin 3.7. ASSESSMENT AND PLAN: An 88-year-old male status post laparoscopic cholecystectomy with cholangiogram, with evidence of obstructed distal common bile duct likely from a stone. He is scheduled for a ERCP today and further recommendations will be pending the results of the ERCP. Hopefully, the stone will be cleared and we can advance his diet and discharge him within the next 24 hours. cc: MD William Lowry MD
[2018-10-09] MEDS ORDERED: XYLOCAINE-MPF 2% ONE (12:16)
[2018-10-09] MEDS ORDERED: DIPRIVAN 1% ONE (12:17)
[2018-10-09] MEDS ORDERED: GLUCAGON ONE (13:02)
--- NOTE | 2018-10-09 14:08 | Diag Imaging Result Doc PS360 ---
EXAM: ERCP-BILIARY AND PANCREATIC HISTORY: CBD stone TECHNIQUE: Three films submitted COMPARISON: None. FINDINGS: Large filling defect within the common bile duct believed to be a large stone. Unable to pass a wire beyond the filling defect. No stent placed. Electronically signed by Bradford Wang 10/09/2018 2:06 PM
--- NOTE | 2018-10-09 14:18 | OPERATIVE NOTE ---
PROCEDURE DATE: 10/09/2018 PROCEDURE: 1. Cholangiogram. 2. ERCP. After informed consent, adequate intravenous sedation, the scope introduced was rather difficult scoping came because of the stiffness and unable to get him in good position. We finally did get a look at the ampulla there is free flow of bile. Cannulation of the bile duct unsuccessful in getting all the way into bile duct and there is suspicious shadow in the bile duct possibly stone but the ampulla is wide open. The scope is withdrawn. Patient tolerated procedure well without any immediate complications. Preop diagnosis CBD stone. POSTOPERATIVE DIAGNOSES: Common bile duct stone. POSTOPERATIVE DIAGNOSIS: Question common bile duct stone, unable to get a good cannulation up into the bile duct. RECOMMENDATION: Will see the LFTs tomorrow and decide. cc: MD William Matthew MD MTDWanda
[2018-10-09] MEDS: PROTONIX IV SCH (21:35)
[2018-10-09] MEDS: SODIUM CHLORIDE 0.9% INJ SCH (21:35)
[2018-10-10] MEDS: NORCO-7.5 PO PRN (01:37)
[2018-10-10] MEDS: DUONEB (A & A) INH SCH ×4 (03:20→21:25)
[2018-10-10] MEDS: ZOSYN 3.375 GM in NS 50 ML IV SCH ×4 (03:53→21:28)
[2018-10-10] MEDS: HUMALOG SUBQ SCH ×4 (06:16→20:43)
--- NOTE | 2018-10-10 06:58 | PROGRESS NOTE ---
DATE: 10/10/2018 SUBJECTIVE: Mr. Lowe is feeling some better. More alert and awake. The patient underwent ERCP yesterday and results reviewed. He denied any major colicky upper abdominal pain. No high-grade fever or chills. Denied any nausea or vomiting. Oral intake is fair. No typical chest pain. OBJECTIVE: Vital signs noted. Neck supple. No JVD. Lungs: Bibasilar crepitations. Heart: S1 and S2 heard. 2/6 systolic murmur at the apex. Abdomen soft, nontender. Bowel sounds present. GROUP ACTIVITIES AIDE: Alert, awake, able to move all 4 limbs. Crepitation in both the knee joints. CONSIDERATION: 1. The patient admitted with acute gallstone cholecystitis. There was a question about a stone in the common bile duct when grips performed ERCP. There was free flow. I am going to recheck his LFT today. Clinically, the patient is doing better. 2. Diabetes mellitus. Accu-Chek result reviewed. 3. Hypertension. 4. Osteoarthritis. Lab and medication noted. We will continue current treatment. If it is okay with the surgeon and the grips, plan is to discharge the patient to a ch[facility] tomorrow. cc: William Escobar MD
[2018-10-10 07:55] LABS: BASO# 0.02 X1000 (0.0-0.2); BASO% 0.2 % (0.0-0.8); EOS# 0.23 X1000 (0.0-0.7); EOS% 2.5 % (0.0-10.0); HEMATOCRIT 36.2 % (42.0-52.0); HEMOGLOBIN 11.7 g/dL (14.0-18.0); IMM GRAN# 0.05 X1000 (0.0-0.04); IMM GRAN% 0.6 % (0.0-0.5); LYMPH# 1.23 X1000 (1.2-3.4); LYMPH% 13.6 % (20.5-51.1); MCH 29.8 PG (27-31); MCHC 32.3 g/dL (33-37); MCV 92.3 FL (81-99); MONO# 1.07 X1000 (0.11-0.59); MONO% 11.8 % (1.7-9.3); MPV 10.7 FL (7.4-10.4); NEUT# 6.44 X1000 (1.4-6.5); NEUT% 71.3 % (42.2-75.2); PLT 223 X1000 (130-400); RBC 3.92 XMIL (4.7-6.1); RDW 14.2 % (11.5-14.5); WBC 9.04 X1000 (4.8-10.8)
[2018-10-10 08:37] LABS: AGAP 8; ALB/GLOB RATIO 0.8; ALBUMIN 2.3 g/dL (3.5-5.0); ALKALINE PHOSPHATASE 153 U/L (32-122); BUN 7 mg/dL (8-22); CALCIUM 7.7 mg/dL (8.8-10.2); CHLORIDE 104 mmol/L (98-107); COSMO 278; CREATININE 0.7 mg/dL (0.7-1.2); ESTIMATED GFR > 60; GLUCOSE 140 mg/dL (70-104); GOT 25 U/L (10-34); GPT 58 U/L (10-44); POTASSIUM 3.5 mmol/L (3.5-5.1); SODIUM 139 mmol/L (136-145); TCO2 27 mmol/L (25-35); TOTAL BILIRUBIN 2.33 mg/dL (0.20-1.00); TOTAL PROTEIN 5.3 g/dL (6.3-8.3)
--- NOTE | 2018-10-10 08:55 | GENERAL SURGERY PROGRESS NOTE ---
DATE: 10/10/2018 SUBJECTIVE: The patient denies abdominal pain, nausea, or vomiting. The ERCP notes were reviewed. OBJECTIVE: Vital Signs: He is afebrile. Vital signs are stable. General: He is alert and oriented x3. No acute distress. GI: Soft. Minimal tenderness. Incision is clean, dry, and intact. Laboratory: His liver function tests are pending. ASSESSMENT/PLAN: An 88-year-old male who is status post laparoscopic cholecystectomy with choledocholithiasis and unsuccessful endoscopic retrograde cholangiopancreatography yesterday. We are awaiting the liver function tests to make further recommendations. cc: MD William Lowry MD
[2018-10-10] MEDS: NS + KCL 20 MEQ 1,000 ML IV SCH (10:30)
[2018-10-10] MEDS: BASAGLAR SUBQ SCH (11:54)
[2018-10-10] MEDS: MIRALAX PO SCH (11:55)
--- NOTE | 2018-10-10 14:24 | GASTROENTEROLOGY PROGRESS NOTE ---
DATE: 10/10/2018 SUBJECTIVE: No acute overnight events. Afebrile. Patient denies N/V/F, CP, SOB. He reports right sided abdominal pain is slightly improved. No BM. OBJECTIVE: Vital signs: Temperature 98.2, heart rate 74, respiratory rate 16, blood [id number]/78, oxygen saturation 95% on 2 L nasal cannula. Generally: Awake, alert, and oriented. No acute distress. HEENT: Sclerae anicteric. Moist mucous membranes. Neck: No JVD. No lymphadenopathy. Cardiovascular: Regular rate and rhythm. No murmurs. Lungs: Clear to auscultation bilaterally. Abdomen: Nondistended. Soft. Mild tenderness to palpation in the right side. No rebound or guarding. Extremities: No cyanosis, clubbing, or edema. Neurologic:Nonfocal. LABS: K 3.5 Cr 0.7 WBC 9.0 Hgb 11.7 plts 223K Tbili 2.33 AST 25 ALT 58 ALP 158 A/P: Mr. Lowe is a 88 year old woman with HTN, HLD, IDDM2, h/o CVA, COPD, CAD s/ p CABG, and dementia who presented with acute cholecystitis s/p CCY on 10/06. Imaging including US and IOC was concerning choledocholithiasis. No evidence of cholangitis, cirrhosis, or pancreatitis. Attempted ERCP yesterday was unsuccessful 09/30 to inability to cannulate ampulla. There was question suspicious shadow in the bile duct. LFT downtrending; patient may have passed stone. Will continue to trend. Started on diabetic liquid diet. #Choledocholithiasis - on empiric zyson - continue diabetic liquid diet - trending LFTs daily - surgery following, apprec recs #Abnormal LFTs: trending #HTN: controlled #DM2: on SSI Will follow with you. Please call with questions cc: William Escobar MD [facility]
[2018-10-10] MEDS: PROTONIX IV SCH (20:42)
[2018-10-10] MEDS: SODIUM CHLORIDE 0.9% INJ SCH (20:42)
[2018-10-10] MEDS ORDERED: CATAPRES PO PRN (20:51)
[2018-10-11] MEDS: NS + KCL 20 MEQ 1,000 ML IV SCH ×2 (01:57→13:23)
[2018-10-11] MEDS: DUONEB (A & A) INH SCH ×2 (03:15→10:42)
[2018-10-11] MEDS: ZOSYN 3.375 GM in NS 50 ML IV SCH ×2 (05:19→10:25)
[2018-10-11] MEDS: HUMALOG SUBQ SCH ×2 (06:43→11:57)
--- NOTE | 2018-10-11 07:25 | DISCHARGE SUMMARY ---
ADMISSION DATE: 10/05/2018 DISCHARGE DATE: FINAL DISCHARGE DIAGNOSES: 1. Acute gallstone cholecystitis, choledocholithiasis, obstructive jaundice. 2. Insulin-dependent diabetes mellitus. 3. Osteoarthritis. 4. Hypertension. 5. Coronary artery disease. 6. History suggestive of atherosclerotic cerebrovascular disease. 7. Chronic obstructive pulmonary disease. 8. Hypokalemia. 9. Gastritis and reflux disease. 10. Hyperlipidemia. HISTORY OF PRESENT ILLNESS: Mr. Lowe is an 88-year-old, white gentleman not doing well lately. His blood sugar was staying high. The patient was feeling weak. He did have vague abdominal pain, some nausea and vomiting, generalized weakness. The patient was brought to the emergency room. Workup in the emergency room did reveal abnormal LFTs, bilirubin, leukocytosis, and fever. The patient underwent abdominal ultrasound which did reveal chronic acalculous cholecystitis, cannot be excluded. The patient had noncontrast CT scan of the abdomen done which revealed fibrotic appearing changes in the lung bases, cholelithiasis with possible acute cholecystitis, and possible distal choledochal lithiasis. The patient also had obstructive jaundice. HOSPITAL COURSE: Patient underwent cholecystectomy and operative cholangiogram which did reveal an obstructing stone in the distalmost common bile duct. GI consult obtained. Dr. Barbour attempted ERCP. It was unsuccessful but patient did have free flow of the bile. Patient's liver functions improving. He denied any significant pain. His jaundice also improving. I did discuss with banquet server. Their plan is to treat the patient conservatively, monitor LFT, follow up with banquet server in 1 week. Clinically, patient is doing better. This morning, he had some loose stools, most likely post cholecystectomy diarrhea. No blood or mucus. I am going to send the stool for C. difficile toxin and WBC. Patient is otherwise afebrile. Vital signs satisfactory. The patient is eager to go to rehab. I did discuss his plan, presentation with his grandson who is taking care of the patient. Also discussed about the stone in the common bile duct, risk of sudden no obstruction and acute surgery. He understood and agreed. I am going to stop Plavix at this time and put him on just aspirin. Continue Levaquin. Physical therapy, monitor Accu-Chek, oxygen, bronchodilator treatment. LAB DATA: Done yesterday, hemoglobin 11.7, hematocrit 36.2, WBC count 9.04, platelet count 223,000. Electrolytes: Potassium 3.5, sodium 139. AST 25, ALT 58, alkaline phosphatase 153, total bilirubin 2.33. All LFTs steadily improving. Accu-Chek results reviewed. Magnesium, last one was 1.9. Blood cultures were no growth. PHYSICAL EXAMINATION: Vital Signs: Vital signs noted. Neck: Supple. No JVD. Lungs: Bibasilar crepitations. Heart: S1 and S2 heard. A 2/6 systolic murmur at the apex. Abdomen: Soft, globular. Bowel sounds present. Mild tenderness in the right upper quadrant. Extremities: No cyanosis, clubbing. No acute DVT. STEAM PIPE FITTER: Alert, awake. Able to move all 4 limbs. DISCHARGE INSTRUCTIONS: The patient does have some arthritic pain in the right knee. We are going to try Voltaren gel. Fall precautions. Overall discharge condition satisfactory. The blood work report should be sent to Dr. Barbour for review. Dr. Rivera is going to cover the patient in my absence at the [facility]. cc: William Escobar MD
[2018-10-11 07:38] LABS: BASO# 0.02 X1000 (0.0-0.2); BASO% 0.2 % (0.0-0.8); EOS# 0.13 X1000 (0.0-0.7); EOS% 1.5 % (0.0-10.0); HEMATOCRIT 37.4 % (42.0-52.0); HEMOGLOBIN 12.2 g/dL (14.0-18.0); IMM GRAN# 0.05 X1000 (0.0-0.04); IMM GRAN% 0.6 % (0.0-0.5); LYMPH% 16.3 % (20.5-51.1); MCHC 32.6 g/dL (33-37); MCV 91.9 FL (81-99); MONO# 1.22 X1000 (0.11-0.59); MONO% 14.2 % (1.7-9.3); MPV 10.8 FL (7.4-10.4); NEUT# 5.78 X1000 (1.4-6.5); NEUT% 67.2 % (42.2-75.2); PLT 247 X1000 (130-400); RBC 4.07 XMIL (4.7-6.1); RDW 14.1 % (11.5-14.5)
--- NOTE | 2018-10-11 08:50 | GASTROENTEROLOGY PROGRESS NOTE ---
DATE: 10/11/2018 SUBJECTIVE: No acute overnight events. No N/V/F, CP, SOB. He reports abdominal "soreness". +BMs. OBJECTIVE: Vital Signs: Temperature 98.3, heart rate 74, respiratory rate 17, blood pressure 178/66. O2 sat 95% RA Generally: Awake, alert, and oriented. No acute distress. HEENT: Sclerae anicteric. Moist mucous membranes. Neck: No JVD. No lymphadenopathy. Cardiovascular: Regular rate and rhythm. No murmurs. Lungs: Clear to auscultation bilaterally. Abdomen: Nondistended. Soft. Mild tenderness to palpation in the right side. No rebound or guarding. Extremities: No cyanosis, clubbing, or edema. Neurologic:Nonfocal. LABS: decreasing LFTs K 2.9 A/P: Mr. Lowe is a 88 year old woman with HTN, HLD, IDDM2, h/o CVA, COPD, CAD s/ p CABG, and dementia who presented with acute cholecystitis s/p CCY on 10/06. Imaging including US and IOC was concerning for choledocholithiasis. Attempted ERCP 10/09 was unsuccessful 2 to inability to cannulate ampulla. There was question suspicious shadow in the bile duct. LFT downtrending, which suggests that he may have passed the stone. Tolerating diet. #Choledocholithiasis: downtrending LFTs suggest passed stone - stopped Zosyn today - stopped PPI; no h/o GERD - continue diabetic diet - trending LFTs daily - surgery following, apprec recs #Abnormal LFTs: as above #HTN: controlled #DM2: on SSI #Hypokalemia: replete lytes Will follow with you. Please call with questions cc: William Escobar MD [facility]
[2018-10-11 08:52] LABS: AGAP 10; ALB/GLOB RATIO 0.7; ALBUMIN 2.3 g/dL (3.5-5.0); ALKALINE PHOSPHATASE 147 U/L (32-122); BUN 5 mg/dL (8-22); CHLORIDE 99 mmol/L (98-107); COSMO 270; CREATININE 0.6 mg/dL (0.7-1.2); ESTIMATED GFR > 60; GLUCOSE 183 mg/dL (70-104); GOT 19 U/L (10-34); GPT 44 U/L (10-44); POTASSIUM 2.9 mmol/L (3.5-5.1); SODIUM 134 mmol/L (136-145); TCO2 25 mmol/L (25-35); TOTAL BILIRUBIN 1.86 mg/dL (0.20-1.00); TOTAL PROTEIN 5.4 g/dL (6.3-8.3)
[2018-10-11] MEDS: BASAGLAR SUBQ SCH (09:30)
[2018-10-11] MEDS ORDERED: INSULIN PEN NEEDLES ONE (10:35)
[2018-10-11] MEDS: NORCO-7.5 PO PRN (10:40)
[2018-10-11] MEDS ORDERED: KLOR-CON PO ONE (10:54)
[2018-10-11 14:39] VITALS: BP 155/87
--- NOTE | 2018-10-31 21:31 | DISCHARGE SUMMARY ---
ADMISSION DATE: 10/05/2018 DISCHARGE DATE: 10/11/2018 DISCHARGE SUMMARY ADDENDUM: Systemic inflammatory response syndrome. The patient did have leukocytosis and fever. Lactate was minimally elevated. A CT scan did reveal acute cholecystitis. Blood cultures were negative. The patient was tachycardic. The patient does fit into criteria for acute systemic inflammatory response syndrome. cc: William Escobar MD
== END 2018-10-11 15:48 | DRG 419 ==
LOC: SUPCPDRO → ED 14:22 → 3N 18:52
PROVIDERS: ADMIT Internal Medicine; ATTEND Internal Medicine
PROC: EN.ERCP (2018-10-09 12:40)
CPT/HCPCS: 51701; 70450; 71010; 71045; 74176; 74300; 74330; 76705; 80053; 80076; 81001; 82009; 82248; 82607; 82948; 83036; 83605; 83735; 83880; 84100; 84439; 84443; 84484; 85025; 85610; 85730; 86850; 86900; 86901; 87040; 88304; 93005; 94640; 94761; 96365; 97110; 97162; 99285; A9270; C1751; C1769; C9113; J0330; J0592; J0696; J1170; J1610; J1815; J2405; J2543; J3480; J7120; P9612; Q9966; Q9967; S0164; XXXXX

== ENCOUNTER 2019-01-20 11:43 | Inpatient (IN) ==
--- NOTE | 2019-01-20 12:16 | Diag Imaging Result Doc PS360 ---
EXAM: CT HEAD W/O CONTRAST HISTORY: stroke TECHNIQUE: CT head without contrast COMPARISON: 10/15/2018 FINDINGS: There is an acute left periventricular and temporal hemorrhage measuring just over 3 cm in diameter. This extends into the left thalamus, medulla and louis. There is subarachnoid hemorrhage as well. Midline shift from the left to the right of 8 mm. There is compression to the left lateral ventricle. A small amount of hemorrhage is in the occipital horns of the lateral ventricles. There is atrophy with chronic microvascular ischemic changes. IMPRESSION: Acute left parenchymal hemorrhage with blood in the subarachnoid space and ventricles as well. This report was discussed with Dr Echevarria on 01/20/2019 at 12:10 PM and was readback. This exam was performed using automated exposure control, adjustment of mA or kV according to patient size, and/or use of iterative reconstruction technique. Electronically signed by Bradford Wang 01/20/2019 12:14 PM
[2019-01-20 12:59] LABS: BASO# 0.05 X1000 (0.0-0.2); BASO% 0.4 % (0.0-0.8); EOS# 0.05 X1000 (0.0-0.7); EOS% 0.4 % (0.0-10.0); HEMATOCRIT 44.8 % (42.0-52.0); HEMOGLOBIN 14.9 g/dL (14.0-18.0); IMM GRAN# 0.03 X1000 (0.0-0.04); IMM GRAN% 0.2 % (0.0-0.5); LYMPH# 3.44 X1000 (1.2-3.4); LYMPH% 26.4 % (20.5-51.1); MCH 30.7 PG (27-31); MCHC 33.3 g/dL (33-37); MCV 92.2 FL (81-99); MONO% 12.3 % (1.7-9.3); MPV 10.6 FL (7.4-10.4); NEUT# 7.85 X1000 (1.4-6.5); NEUT% 60.3 % (42.2-75.2); PLT 291 X1000 (130-400); RBC 4.86 XMIL (4.7-6.1); WBC 13.02 X1000 (4.8-10.8)
[2019-01-20 13:16] LABS: INR 0.98; PROTIME 13.8 Seconds (11.0-16.0); PTT 29.1 Seconds (22.3-41.8)
[2019-01-20 13:23] LABS: AGAP 13; ALB/GLOB RATIO 0.9; ALBUMIN 3.6 g/dL (3.5-5.0); ALKALINE PHOSPHATASE 121 U/L (32-122); BUN 12 mg/dL (8-22); CALCIUM 9.1 mg/dL (8.8-10.2); CHLORIDE 99 mmol/L (98-107); COSMO 290; CREATININE 0.9 mg/dL (0.7-1.2); ESTIMATED GFR > 60; GLUCOSE 232 mg/dL (70-104); GOT 26 U/L (10-34); GPT 23 U/L (10-44); POTASSIUM 3.6 mmol/L (3.5-5.1); SODIUM 142 mmol/L (136-145); TCO2 30 mmol/L (25-35); TOTAL BILIRUBIN 0.85 mg/dL (0.20-1.00); TOTAL PROTEIN 7.5 g/dL (6.3-8.3)
[2019-01-20] MEDS ORDERED: TRANSDERM-SCOP TD SCH (15:45)
[2019-01-20] MEDS: MORPHINE IV PRN ×2 (16:51→23:44)
[2019-01-20] MEDS: ATIVAN IV PRN ×2 (16:51→23:44)
--- NOTE | 2019-01-21 00:17 | HISTORY AND PHYSICAL ---
CHIEF COMPLAINT: Obtundation, not able to move on the right side. HISTORY OF PRESENT ILLNESS: He is 88-year-old white male patient of Dr. Escobar came from shelter with above symptoms. The patient was evaluated in the ER. CT head showed massive bleed on the left side with midline shift was subarachnoid. Family made a DNR, admitted for comfort care. Most of the history was obtained from the previous reports. PAST MEDICAL HISTORY: Hypertension, hyperlipidemia, type 2 diabetes, osteoarthritis, hip fracture, CVA, COPD, CAD, vitamin B12 deficiency, dementia. PAST SURGICAL HISTORY: Reported bypass, tonsillectomy, hip surgery on the left side, ERCP done 10/09/2018 for common bile duct stone, laparoscopy, cholecystectomy. MEDICATIONS: Prior to the admission Protonix, amlodipine, nitroglycerin, iron sulfate, polyethylene glycol, [place], clonidine, Coreg, aspirin, Colace. ALLERGIES: Not known. SOCIAL HISTORY: Is shelter resident lives the grandson, sister was at bedside. No drug abuse. No alcohol abuse. REVIEW OF SYSTEMS: Not able to obtain. EXAMINATION: Temperature is 99 degrees, blood pressure is high, 89% on oxygen, obtunded, dry, pupils unequal, left 1 is bigger than the right side. Midline abdominal scar.Chest: Clear. Heart: Sounds are regular. Belly: Is soft, nontender. Cm was placed. He has dense hemiplegia on the right side, slightly moving on the left side. INVESTIGATIONS: CBC. White cell count 13, hematocrit 44, platelets 291,000. PT/INR is normal. SMA 7 is normal, glucose 219. LFTs were normal. ASSESSMENT AND PLAN: 88-year-old white male with above conditions, admitted to the hospital obtundation with right-sided weakness. CT scan showed with bleed, most likely from hypertension with midline shift and family decided palliative care, comfort measure, do not resuscitate 1, oxygen as needed, morphine, Ativan, scopolamine patch, and continue supportive care. Waiting for demise. cc: José Luis Rivera MD
[2019-01-21] MEDS: MORPHINE IV PRN ×4 (05:54→18:40)
[2019-01-21] MEDS: TYLENOL PR PRN ×2 (05:55→11:52)
[2019-01-21] MEDS: ATIVAN IV PRN ×3 (05:55→18:39)
--- NOTE | 2019-01-21 14:09 | PROGRESS NOTE ---
DATE: 01/21/2019 SUBJECTIVE: The patient's sister at bedside. He had a fever last night. Tylenol was given. He is completely obtunded, hyperventilating, and pupils are unequal. EXAMINATION: Temperature is 102 degrees, pulse 79, blood pressure is high, 3 L nasal cannula 95%. Dense weakness on the right side, not able to move with painful stimulus. ASSESSMENT AND PLAN: Cerebrovascular accident on the left side due to cerebral hemorrhage and with midline shift and poor prognosis. Family agreed for palliative care, Do Not Resuscitate, and continue supportive care waiting for demise and patient was admitted for Dr. Escobar. LEVEL OF DOCUMENTATION: 15 minutes. cc: José Luis Rivera MD
[2019-01-22] MEDS: ATIVAN IV PRN ×4 (01:00→18:25)
[2019-01-22] MEDS: MORPHINE IV PRN ×5 (01:00→23:55)
--- NOTE | 2019-01-22 12:32 | PROGRESS NOTE ---
DATE: 01/22/2019 SUBJECTIVE: Mr. Lowe had massive intracranial hemorrhage on the left side, with shift of the midline. He is stuporous. He does not move any extremities. He does have definite intracranial hypertension. Prognosis is poor. -7 cc: MD José Luis Squires MD
--- NOTE | 2019-01-23 07:05 | PROGRESS NOTE ---
DATE: 01/23/2019 SUBJECTIVE: Mr. Lowe is an 88-year-old, white gentleman with multiple medical problems, admitted with lethargy, altered mental status. Found to have intracerebral bleed. The patient is unresponsive. Family requested Do Not Resuscitate and comfort care. Patient did have fever. No chills. Known case of diabetes mellitus, paroxysmal atrial fibrillation, hypertension, osteoarthritis, gastritis. The patient is not able to give any history. Admission history and physical noted. OBJECTIVE: Vital Signs: Temperature 102.7 degrees, blood pressure 192/87, pulse 72, respirations 20. Skin: Senile turgor. Pupils reacting to light. Neck: Supple. No JVD. Decreased air entry in both the bases. CVS: A 2/6 systolic murmur at the apex. Abdomen: Soft, globular. Bowel sounds present. LEGAL BILLING CLERK: The patient is unresponsive, uncooperative for detailed exam. CONSIDERATIONS: 1. Massive intracerebral bleed. 2. Hypertension. 3. Diabetes mellitus. 4. Fever, most likely central origin. PLAN: Family requested comfort care, which we will continue. Continue rest of the treatment and close observation. cc: MD José Luis Garcia MD
[2019-01-23 08:07] VITALS: BP 173/90
--- NOTE | 2019-01-23 08:39 | EKG Report ---
Test Performed on : 01/20/2019 12:10:15 PM Test Reason : ED. NO EKG ORDER FOR MUSE Blood Pressure : / mmHG Vent. Rate : 066 BPM Atrial Rate : 063 BPM P-R Int : 000 ms QRS Dur : 144 ms QT Int : 436 ms P-R-T Axes : 000 060 044 degrees QTc Int : 457 ms Atrial fibrillation. with premature ventricular or aberrantly conducted complexes. Right bundle branch block Abnormal ECG When compared with ECG of 05-OCT-2018 16:21, Atrial fibrillation. has replaced Sinus rhythm. Unconfirmed Result
[2019-01-23] MEDS: TYLENOL PR PRN (09:34)
--- NOTE | 2019-02-06 16:40 | DISCHARGE SUMMARY ---
ADMISSION DATE: 01/20/2019 DISCHARGE DATE: 01/23/2019 DATE OF : Patient 01/23/2019 FINAL DISCHARGE DIAGNOSES: 1. Massive intracranial hemorrhage. 2. Diabetes mellitus. 3. Hypertension. 4. Osteoarthritis. 5. History of stent in the common bile duct. 6. Hyperlipidemia. 7. Diabetes mellitus. 8. Cerebrovascular accident. 9. Vitamin B12 deficiency. HISTORY OF PRESENT ILLNESS: Mr. Lowe 88-year-old white gentleman, resident of [facility], admitted with altered mental status. The patient was found obtunded at the snf. Not able to move right side. The patient was sent to the emergency room. CT of the head showed massive bleed on the left side with midline shift. It was thought it was subarachnoid hemorrhage. As per patient's wishes, family made him DNR. Patient was admitted for comfort care. The patient was treated with pain management, oxygen and supportive care. The patient's blood pressure was elevated. We gave him oxygen. Scopolamine patch for secretions. The patient's clinical condition deteriorated and the patient on 01/23/2019. Family made aware. LABORATORY DATA: Done on admission WBC count 13.02, hemoglobin 14.9, hematocrit 44.8, platelet count 291,000. PT/INR 0.98, PTT was 29.1. Admission electrolytes were fairly benign. Head CT showed acute left parenchymal hemorrhage with blood in the subarachnoid space and ventricle as well. cc: MD José Luis Garcia MD
--- NOTE | 2019-02-09 15:51 | PROVIDER DOCUMENTATION ---
This chart was entered by Lei Ortega Scribe, acting as scribe for Robbin Echevarria MD. HPI-Neurological Disorder - General Chief Complaint: Stroke-Like Symptoms Stated Complaint: STROKE Time Seen by Provider: 01/20/19 11:44 Source: EMS, [facility] records Unable to obtain history due to:: altered Allergies/Adverse Reactions: Patient Allergies Allergy/AdvReac Type Severity Reaction Status Date / Time No Known Allergies Allergy Verified 02/22/18 01:07 Home Medications: Home Medication List Medication Instructions Recorded Confirmed Last Taken Type Amlodipine Besylate 5 mg PO DAILY 02/22/18 02/22/18 02/21/18 History Pantoprazole Sodium 40 mg PO DAILY 02/22/18 02/22/18 02/21/18 History Chlorhexidine Gluconate [Peridex] 15 ml MT BID udc 02/27/18 Unknown Rx Ferrous Sulfate 325 mg PO DAILY tablet 02/27/18 Unknown Rx Nitroglycerin Sl [Nitroglycerin] 0.4 mg SL Q5M PRN PRN tablet 02/27/18 Unknown Rx Acetaminophen [Tylenol] 650 mg PO Q6H PRN PRN tablet 10/10/18 Unknown Rx Albuterol 2.5MG/Ipratrop 0.5MG 3 ml INH RTQ6H neb 10/10/18 Unknown Rx [Duoneb (A & A)] Carvedilol 12.5 mg PO BID #0 10/10/18 02/22/18 02/21/18 Rx Clonidine [Catapres] 0.1 mg PO TID PRN #30 tablet 10/10/18 Unknown Rx Hydrocodone/APAP 7.5 mg/325 mg 1 each PO Q4H PRN PRN tablet 10/10/18 Unknown Rx [[place]-7.5] Insulin Glargine [Basaglar] 22 unit SUBQ QAM insuln.pen 10/10/18 Unknown Rx Levofloxacin [Levaquin] 750 mg PO DAILY #7 tablet 10/10/18 Unknown Rx Polyethylene Glycol 3350 [Miralax] 17 gm PO DAILY powder, packet 10/10/18 Unknown Rx Aspirin [Aspirin EC] 81 mg PO DAILY #30 tablet.dr 10/11/18 Unknown Rx Docusate Sodium [Colace] 200 mg PO QHS #0 capsule 10/11/18 Unknown Rx Polyethylene Glycol 3350 [Miralax] 17 gm PO BID #0 powder, packet 10/11/18 Unknown Rx - History of Present Illness-Neuro Nature of Presenting Problem: 88 y/o M presents to the ED via EMS due to liscix-[id number]-xikhbeci. [facility] is from a [facility]. EMS was not given a full report on patient so information is limited. LKWT last night. Per patient's paperwork he is a DNR. Context: reports: found unresponsive by [facility] staff Character of Altered Mental Status: reports: unresponsive Any recent trauma/injury?: reports: none Character of Deficits: reports: altered sensation New weakness or altered sensation location:: reports: none Review of Systems - Adult - REVIEW OF SYSTEMS - ADULT ROS:: unobtainable per condition Constitutional: reports: see HPI Past History - Adult - PAST MEDICAL HISTORY-ADULT Review of Records: reports: Nursing Assessment Review, Medications Reviewed Major Childhood Illnesses: reports: denies history Cardiovascular: reports: CAD, CHF, HTN Respiratory: reports: denies history Gastrointestinal: reports: denies history Obstetrical/Gynecological: reports: denies history Genitourinary: reports: denies history Musculoskeletal: reports: denies history Neurological: reports: CVA, stroke deficits (left side of face) Psychiatric: reports: denies history Endocrine/Immune: reports: Diabetes Other Conditions: reports: denies history - PRIOR SURGERIES/PROCEDURES Surgical/Procedure History: reports: CABG, tonsillectomy - IMMUNIZATION STATUS Childhood Immunizations: See Nurse Assessment Flu Vaccine: See Nurse Assessment - FAMILY HISTORY Family History: reviewed, not pertinent Physical Exam- Neurological - Physical Exam-Neuro Initial Vital Signs Reviewed: Yes General Appearance: other (altered, no response to verbal stimuli) Head Injury: no evidence of injury Respiratory: lungs clear, normal breath sounds, no respiratory distress, no accessory muscle use Cardiovascular: normal peripheral pulses, regular rate, rhythm zipper trimmer hand Exam: other (anisocoria right pupil 2-3 in size, left pupil 4-5 in size). negative: normal hearing, normal speech, facial droop, facial weakness Motor/Sensory: other (flaccid RUE; increased tone to LUE) Neurologic: other (babinski sign; does not follow commands). negative: facial droop Integumentary: normal color, warm/dry Progress - PLAN OF CARE/RESULTS Progress/Plan/Lab Results: Vital Signs - 8 hr 01/20/19 11:52 Temperature 99.2 F Pulse Rate 82 Respiratory Rate 24 Blood Pressure 206/110 O2 Sat by Pulse Oximetry 88 L Laboratory Results - last 24 hr 01/20/19 11:48 POC Glucose 219 H Orders Category Date Time Status Admit - [facility] Routine AdmDCTranf 01/20/19 12:47 Active Cardiac Monitoring DIRECTED Care 01/20/19 12:[address] HEAD W/O CONTRAST [CT] Stat Exams 01/20/19 11:45 Completed CBC WITH DIFF [HEME] Stat Lab 01/20/19 12:37 Ordered COMPREHENSIVE METABOLIC PANEL [CHEM] Stat Lab 01/20/19 12:37 Ordered PROTIME WITH INR [COAG] Stat Lab 01/20/19 12:37 Ordered PTT [COAG] Stat Lab 01/20/19 12:37 Ordered Transfer/Admit Order [TRANSFER] Routine Transfer 01/20/19 12:48 Ordered 1210-- Radiologist called, Acute left parenchymal hemorrhage with blood in the subarachnoid space and ventricles as well. - EKG 1 Time of EKG reading by physician:: 12:10 EKG Read and Signed by:: Robbin Echevarria EKG Interpretation (*Must complete 3 of following elements*): Abnormal Rate: 66 Rhythm: atrial fibrillation QRS: RBB - CT/MRI 1 CT Study: Head Impression: Abnormal, Discussed w/Radiology, See EMR Report ( EXAM: CT HEAD W/O CONTRAST HISTORY: stroke TECHNIQUE: CT head without contrast COMPARISON: 10/15/2018 FINDINGS: There is an acute left periventricular and temporal hemorrhage measuring just over 3 cm in diameter. This extends into the left thalamus, medulla and louis. There is subarachnoid hemorrhage as well. Midline shift from the left to the right of 8 mm. There is compression to the left lateral ventricle. A small amount of hemorrhage is in the occipital horns of the lateral ventricles. There is atrophy with chronic microvascular ischemic changes. IMPRESSION: Acute left parenchymal hemorrhage with blood in the subarachnoid space and ventricles as well. This report was discussed with Dr Echevarria on 01/20/2019 at 12:10 PM and was readback. This exam was performed using automated exposure control, adjustment of mA or kV according to patient size, and/or use of iterative reconstruction technique. Electronically signed by Bradford Wang 01/20/2019 12:14 PM) - CONSULTS/PCP/HOSPITALIST Notification #1 *Consult/PCP/Hospitalist*: Dr Escobar Time Discussed: 12:55 Consult Disposition: Admit Departure - Departure Date of Disposition Decision: 01/20/19 Time of Disposition Decision: 12:58 DIAGNOSIS: Intraparenchymal hemorrhage of brain, Coma Disposition: ADMITTED INPATIENT 09 Certified Medical Emergency: Emergent Condition: Critical Referrals and Follow-Ups: William Escobar MD [Primary Care Provider] - - Critical Care Note This patient required my direct & personal management of CC.: Yes Total Time (mins): 45 Critical Care Statement: This patient required my direct personal management to treat or rule out processes, the absence of which, could potentiallly result in sudden, clinically significant life or limb threatening deterioration. Attestation - Physician/ DARYN Attestation Patient care was provided by Advanced Practice Provider:: No The physician spent face to face time with patient:: Yes Advanced Practice Provider documentation review:: Supervising physician onsite and consulted in the evaluation and care of this patient. The physician did have a face to face encounter with the patient. This chart was documented by the indicated scribe, (Lei Ortega Scribe) and accurately reflects the services I performed and decisions made by me, Robbin Echevarria MD, as attested by the provider's signature.
== END 2019-01-23 10:35 | disposition expired | DRG 65 ==
LOC: SUPCPDRO → ED 11:43 → 3N 14:02
PROVIDERS: ADMIT Internal Medicine; ATTEND Internal Medicine
CPT/HCPCS: 70450; 80053; 82948; 85025; 85610; 85730; 93005; 99285; A9270; J2060; J2270; XXXXX